=== PATIENT | male | born 1940 | race Caucasian/White ===

== ENCOUNTER 2016-12-06 14:03 | Emergency (ER) | payer MEDICARE, OTHER ==
--- NOTE | ~2016-12-06 | CR63 ---
[facility]. [facility] A Service of [facility] & [facility] RADIOLOGY TEXT RESULTS PATIENT: YASMIN GARCIA LOCATION: SED : 36 UNIT #: [id number] AGE: [address]: Mich Alegre MD SEX: M ORDER DR: [id number] [place] [id number] E MR#: [id number] Acc #: [id number] NAME: YASMIN GARCIA. : 1940 SEX: M STUDY DATE/TIME: 12/06/2016 15:48 UNIT: SED ROOM: STUDY DESCRIPTION: CR Chest 2 View Attending Physician: Mich Alegre M.D. Ordering Physician: Mich Alegre M.D. Primary Care Physician: Calvin Encarnacion D.O. MEDICAL IMAGING REPORT This report is preliminary unless electronic signature is present. EXAM Two views chest, 12/06/16 HISTORY Cough. Cough for 2 months. Memory loss. Forgetfulness x1 week. FINDINGS PA and lateral radiographs of the chest are presented. Comparison 06/04/16. Stable cardiac enlargement given differences in lung volumes. Evidence of prior coronary artery stenting. Lung volumes normal on today's examination. Patchy and linear densities right infrahilar region. Nonspecific. Components of atelectasis and right infrahilar pneumonia could be considered. No dense airspace disease. No pleural effusion or pneumothorax. No suspicious nodule. Calcified granuloma right lower lobe, unchanged. There is a calcified granuloma at the right apex as well. Degenerative changes in the spine and left shoulder. No acute-appearing bony abnormality. Surgical clips left upper quadrant of abdomen. Dictated by... Del Calix M.D. THIS IS AN ELECTRONICALLY VERIFIED REPORT Del Calix M.D. at 12/07/2016 5:16 PM DEV/gilmar TD: 12/06/2016 22:53 JOB #: [id number] MEDICAL IMAGING REPORT Page 1 of 1
--- NOTE | ~2016-12-06 | CT71 ---
[facility] A Service of [facility] RADIOLOGY TEXT RESULTS PATIENT: YASMIN GARCIA LOCATION: SED : 36 UNIT #: [id number] AGE: [address]: Mich Alegre MD SEX: M ORDER DR: [id number] [address] [address] [id number] E MR#: [id number] Acc #: [id number] NAME: YASMIN GARCIA. : 1940 SEX: M STUDY DATE/TIME: 12/06/2016 16:00 UNIT: SED ROOM: STUDY DESCRIPTION: CT Head Wo Contrast Attending Physician: Mich Alegre M.D. Ordering Physician: Mich Alegre M.D. Primary Care Physician: Calvin Encarnacion D.O. MEDICAL IMAGING REPORT This report is preliminary unless electronic signature is present. EXAM Head CT, no contrast, 12/06/16 INDICATIONS 76-year-old male with a cough for 2 months, memory loss, forgetfulness for a week. History of prostate cancer. TECHNIQUE Noncontrast CT of the brain was performed and compared with 06/04/16. This CT exam was performed with one or more of the following radiation dose reduction techniques: Automatic exposure control, adjustment of mA and/or kV according to patient size, and iterative reconstruction. FINDINGS There is mild generalized atrophy, sulci and ventricles are otherwise unremarkable. No midline shift. No evidence of acute intracranial hemorrhage. There is no mass, mass effect or edema to suggest acute infarct. No extraaxial fluid collections are identified. Probable chronic ischemic changes in the periventricular white matter to a mild degree. Globes are intact. Bones are intact. Sinuses are clear. IMPRESSION 1. Atrophy and mild chronic ischemic changes, no significant change from 06/04/16. Dictated by... Carl Blue M.D. THIS IS AN ELECTRONICALLY VERIFIED REPORT Carl Blue M.D. at 12/07/2016 2:30 PM JLY/psc [facility] A Service of [facility] RADIOLOGY TEXT RESULTS PATIENT: YASMIN GARCIA LOCATION: [facility] : 38 UNIT #: [id number] AGE: [address]: Mich Alegre MD SEX: M ORDER DR: TD: 12/06/2016 23:25 JOB #: [id number] MEDICAL IMAGING REPORT Page 1 of 1
[~2016-12-06 14:03] MED LIST: AGGRENOX1 CAP PO; ALBUTEROL17 GM INH; ARIPIPRAZOLE20 MG; ASA; ASPIRIN PO; ASPIRIN81 M2 PO; BAYER PM CAPLE1 EACH PO; BROMPHED PO; CRESTOR PO; DITROPAN5 MG; DITROPAN5 MG PO; FLEXERIL PO; FLOMAX0.4 M1 PO; HYDROCODON-ACE1 EAC1 PO; HYDROCODON-ACE1 EAC7 PO; IMITREX PO; IMITREX50 MG PO; LEVAQUIN PO; LIPITOR PO; LOPRESSOR PO; LORTAB 5-325 M1 EACH PO; MIRAPEX1 MG DOB; MULTI-DAY VITAM1 TAB; MULTI-VITAMIN1 EAC1 PO; NITROGYLCERIN SUBLINGUAL; OMEPRAZOLE20 M1 PO; PAXIL; PAXIL30 MG PO; PLAVIX PO; PRILOSEC PO; PRILOSEC20 M1 PO; PROSCAR5 MG PO; SUMATRIPTAN SUC50 M1; TOPROL XL 50 MG50 MG PO; TOPROL XL PO; VICODIN 5/500 T1 TAB PO; ZITHROMAX PO; ZOMIG2.5 MG; ZOMIG2.5 MG PO; [UNRECOGNIZED DRUG - CODE]; [UNRECOGNIZED DRUG - OTHER]
[2016-12-06] MEDS ORDERED: AGGRENOX1 CAP PO (14:13)
[2016-12-06] MEDS ORDERED: COGENTIN0.5 M1 PO (14:13)
[2016-12-06] MEDS ORDERED: CRESTOR PO (14:14)
[2016-12-06] MEDS ORDERED: LOPRESSOR PO (14:14)
[2016-12-06] MEDS ORDERED: FLOMAX0.4 M1 PO (14:14)
[2016-12-06] MEDS ORDERED: NITROGLYCERIN0.4 MG SL (14:15)
[2016-12-06] MEDS ORDERED: DITROPAN XL5 M1 PO (14:15)
[2016-12-06] MEDS ORDERED: OMEPRAZOLE20 M2 PO (14:15)
[2016-12-06] MEDS ORDERED: PEXEVA30 MG PO (14:16)
[2016-12-06] MEDS ORDERED: ZOMIG2.5 MG PO (14:16)
[2016-12-06 15:45] LABS: BASOPHIL% 0.6 % (0-2.5); DIFF IND NO; EOSINOPHIL# 0.2 X10e3 (0-0.7); HEMATOCRIT 36.3 % (38.0-50.0); HEMOGLOBIN 11.8 gm/dL (13.0-16.0); LYMPHOCYTE# 2.4 X10e3 (1.0-3.5); LYMPHOCYTE% 33.8 % (17.0-45.0); MEAN CORPUSCULAR HEMOGLOBIN 29.6 PG (28-34); MEAN CORPUSCULAR HGB CONC 32.5 g/dL (30-36); MEAN PLATELET VOLUME 7.5 FL (6.5-11.5); MONOCYTE# 0.4 X10e3 (0-1.0); MONOCYTE% 6.1 % (3.0-12.0); NEUTROPHIL# 3.9 X10e3 (1.5-7.1); NEUTROPHIL% 56.5 % (40-75); PLATELET COUNT 222 X10e3 (140-420); RED BLOOD COUNT 3.99 X10e (3.90-5.60)
[2016-12-06 16:02] LABS: ALBUMIN SERUM 3.5 g/dL (3.5-5.0); BILIRUBIN, DIRECT 0.1 mg/dL (0.0-0.2); BILIRUBIN,INDIRECT 0.4 mg/dL (0.0-0.9); BILIRUBIN,TOTAL 0.5 mg/dL (0.2-2.0); GLOM FILT RATE Estimated 71.8 mL/min (>60); POTASSIUM 3.9 mmol/L (3.5-5.1); PROTEIN TOTAL SERUM 6.5 g/dL (6.0-8.3)
[2016-12-06 18:08] LABS: URINE SOURCE CLEAN CATCH
[2016-12-06 18:10] LABS: MICRO INDICATED? NO; URINE APPEARANCE CLEAR; URINE BILIRUBIN NEG (NEG); URINE BLOOD NEG (NEG); URINE COLOR YELLOW; URINE GLUCOSE NEG (NORM); URINE KETONE NEG (NEG); URINE LEUKOCYTE ESTERASE NEG (NEG); URINE NITRATE NEG (NEG); URINE PROTEIN NEG (NEG); URINE SPECIFIC GRAVITY 1.015 (1.003-1.035); URINE UROBILINOGEN 0.2 MG/DL (NORM)
== END 2016-12-06 18:54 | disposition home or self-care (01) ==
LOC: SED 14:03
PROVIDERS: Emergency Medicine
DX: J18.9 Pneumonia, unspecified organism (principal); K21.9 Gastro-esophageal reflux disease without esophagitis; Z90.49 Acquired absence of other specified parts of digestive tract; Z88.0 Allergy status to penicillin; Z79.899 Other long term (current) drug therapy
CPT/HCPCS: 36415; 70450; 71020; 80048; 80076; 81003; 83605; 85025; 87040; 99284